=== PATIENT | female | born 1945 | race Asian ===

== ENCOUNTER 2017-09-25 02:02 | Observation (INO) | payer OTHER ==
[~2017-09-25] VITALS: Ht 160 cm; Wt 57.6 kg
[~2017-09-25 02:02] MED LIST: FERROUS SULFAT324 MG PO; MELOXICAM7.5 M1 PO; METFORMIN HCL500 M3 PO; MULTIVITAMINS1 EAC9 PO; PANTOPRAZOLE SO40 M1 PO; PRAVACHOL20 M2 PO
--- NOTE | 2017-09-25 10:39 | Operative Report ---
Operative/Inv Procedure Report Surgery Date: 09/25/17 Name of Procedure: Right total knee arthroplasty. Pre-Operative Diagnosis: Right knee primary osteoarthritis. Post-Operative Diagnosis: Same. Estimated Blood Loss: 50ml to 100ml Surgeon/Seafood And Service Meat Manager: Alessandro Boyer MD/RIO Walker Anesthesia: Spinal Monitors: EKG/blood pressure/oxygen saturation. IV Fluids: 1200 cc lactated Ringer's. Implants: Ronald Triathlon PS Knee Components 1. Size 3 posterior Stabilized Femoral Component. 2. Size 3 tibial Baseplate 3. Size 3 x 11 mm Tibial Bearing Insert. 4. Size 27 x 9 mm symmetric patella Component. Urine Output: 250 cc. Drains: None. Specimens: Excised portions of bone and cartilage and soft tissue sent to pathology for histopathological analysis and documentation. Microbiology: None. Tourniquet: 46 minutes at 300 mmHg. Complications: None known. Condition: Stable. Operative Indication: The patient is a 72-year-old female with a several year history of progressive right knee pain and gradually developing varus deformity secondary to primary osteoarthritis of the knee. She was initially treated conservatively by her PCP and then referred to me when initial conservative treatment by her PCP failed. I did continue conservative treatment with medications and modalities and therapy and activity modification along with oral and topical medication management. We did try various injection therapies to the knee. The patient's knee symptoms ultimately continued and progressed. We did discuss the risks and benefits and expected outcomes of continued attempts at nonoperative management which would no longer felt to be acceptable to the patient. We did discuss the same with respect to surgical intervention with right total knee arthroplasty. All of the patient's questions were answered at length. After discussion of her options and answering all questions the patient did wish to move forward with surgery and surgical consent was obtained. Operative/Procedure Note Note: DATE OF SERVICE: 09/25/2017 PREOPERATIVE DIAGNOSIS: Right knee primary osteoarthritis. POSTOPERATIVE DIAGNOSIS: Same PROCEDURE TITLE: Right total knee arthroplasty. SURGEON: Alessandro Boyer M.D. PROJECT MANAGER RETAIL: RIO Walker FINDINGS: 1. Tricompartmental primary osteoarthritis right knee. ANESTHESIA: Spinal plus sedation. MONITORS: EKG, BP, O2 saturation, BIS. IV FLUIDS: 1200 cc lactated Ringer's. IMPLANTS PLACED: Ronald Triathlon PS Knee Components 1. Size 3 posterior Stabilized Femoral Component. 2. Size 3 tibial Baseplate 3. Size 3 x 11 mm Tibial Bearing Insert. 4. Size 27 x 9 mm symmetric patella Component. URINE OUTPUT: 250 cc. EBL: 50-100 cc. DRAINS: None. SPECIMEN: Excised portions of bone and cartilage and soft tissue sent to pathology for histopathological analysis and documentation. TOURNIQUET: 46 minutes at 300 mmHg. COMPLICATIONS: None known. OPERATIVE INDICATIONS: The patient is a 72-year-old female with a several year history of progressive right knee pain and gradually developing varus deformity secondary to primary osteoarthritis of the knee. She was initially treated conservatively by her PCP and then referred to me when initial conservative treatment by her PCP failed. I did continue conservative treatment with medications and modalities and therapy and activity modification along with oral and topical medication management. We did try various injection therapies to the knee. The patient's knee symptoms ultimately continued and progressed. We did discuss the risks and benefits and expected outcomes of continued attempts at nonoperative management which would no longer felt to be acceptable to the patient. We did discuss the same with respect to surgical intervention with right total knee arthroplasty. All of the patient's questions were answered at length. After discussion of her options and answering all questions the patient did wish to move forward with surgery and surgical consent was obtained. PROCEDURE DESCRIPTION/FINDINGS: The patient was brought to the operating room and placed on the operating room table in the supine position. The patient was then placed into a sitting position and a spinal anesthetic was administered by the anesthesia staff. The patient was returned to the supine position and given sedation. A dose of IV antibiotics was given for infection prophylaxis. 1 g of tranexamic acid was given to help minimize acute blood loss during and immediately after surgery. A well-padded tourniquet was applied to the proximal portion of the right thigh. A Navarro catheter was placed in sterile fashion by the nursing staff. All bony prominences were well padded. The nonsterile portion of the Nelson leg daigle was secured to the OR table. The right foot and ankle were wrapped in a plastic barrier drape secured with tape. The right lower extremity was then prepped and draped in the usual sterile fashion. Bony landmarks and a planned midline anterior longitudinal skin incision were marked on the skin using a sterile marker. An Ioban drape was then applied over and about the knee. The sterile plate for the Nelson leg daigle was secured in position on the OR table. The right leg, ankle and foot were then padded and secured to the sterile stirrup for the Nelson leg daigle. The extremity was then exsanguinated with an Esmarch bandage and the pneumatic tourniquet was inflated to a pressure of 300 mm Hg. The skin incision was made with a #10 scalpel blade. Sharp dissection continued down through the skin and subcutaneous tissues down to the level of the extensor mechanism. Full-thickness skin with subcutaneous tissue flaps were raised in a medial and lateral direction sharply with a combination of scalpel and Metzenbaum scissors. Hemostasis was achieved using electrocautery. A medial parapatellar arthrotomy was performed and extended proximally into the quadriceps tendon and distally to the medial side of the tibial tubercle. The patella was everted and a synovectomy about the patella was performed sharply with a scalpel. Osteophytes about the articular margin of the patella were excised using rongeurs. The retropatellar fat pad was excised sharply with a scalpel. A synovectomy of the supracondylar region at the anterior distal femur as well as about the medial and lateral gutters of the knee was also performed sharply, achieving hemostasis with electrocautery. Inspection of the patellofemoral articular cartilage showed full-thickness chondral loss at the trochlear groove as well as significant cartilage wear with fissuring and fibrillation at the patella.. The patellar thickness measured 24 mm at the thickest portion of the patella using the patellar caliper. The sagittal saw was used to make a provisional transverse resection cut removing the patella facets and articular cartilage. The patella component sizing template was placed onto the cut surface of the patella. In this case we elected to go with a 27 mm diameter symmetric patellar component. This patellar component has a polyethylene thickness of 9 mm. We therefore resected some more patellar bone to equalize as best as possible the amount of bone resected to correlate with the thickness of the patella component. We therefore in this case resected patellar bone until we were left with a cut patella measuring 14 mm thick as measured with the patellar caliper. The patella drill guide was placed onto the cut surface of the patella and medialized slightly to help with patellofemoral tracking. The patellar component fixation holes were drilled through the drill guide with the appropriate drill. The metal protector for the cut surface of the patella was applied and the patella was subluxated laterally out of the way in to the lateral gutter. The knee was flexed and provisional excision of the medial and lateral menisci as well as the cruciate ligaments were performed sharply with a scalpel. Synovectomy of the intercondylar notch of the distal femur was performed sharply as well. Osteophytes about the intercondylar notch were taken down with rongeurs. The intramedullary drill was used to open the distal femur in a distal to proximal direction beginning roughly 1 cm anterior to the femoral attachment site of the posterior cruciate ligament. The intramedullary pedro was attached to the femoral alignment guide which was set at 6 of valgus and with the universal resection block also attached for a planned distal femoral resection of 10 millimeters. The intramedullary pedro was impacted through the hole in the distal femur and advanced until the attached femoral alignment guide was resting against the most prominent portion of the distal femoral condyles. The femoral alignment guide was then secured in position with pins. The distal resection guide was pinned to the anterior femur. The intramedullary pedro and femoral alignment guide were then removed leaving the distal resection guide in placed. The modular capture for the sagittal saw was attached and the distal femoral resection cuts were made with the sagittal saw making sure to protect the soft tissues. The distal femoral resection guide was removed and the distal femoral resection cut was checked and was felt to be satisfactory. The femoral sizer was set for 3 of external rotation and then it was placed in to position on the cut surface of the distal femur with the feet of the sizer slipped underneath the femoral condyles. Referencing the trans-epicondylar axis was not needed in this case to set the rotation of the sizer as there was no significant loss of the posterior femoral condyles. We determined the level of anterior bone resection and femoral sizing in this case to be best with a size 3 as checked with both the femoral stylus and the dusty wing checked through both the medial and lateral femoral sizing slots. Once we determined the appropriate level for anterior bone resection, and consequently the proper femoral sizing, the peg drill to make holes for placement of the four in one cutting block was drilled through the ``EPI holes in the femoral sizing jig. The femoral sizer was removed, and the four in one cutting block was secured to the distal femur with the fixation pegs placed in to the previously drilled holes made through the femoral sizing jig. Retractors were placed for soft tissue protection and the distal femoral resection cuts were made sequentially beginning with the anterior femoral cut, followed by the posterior condyle cuts, followed by the anterior chamfer cut, and finally the posterior chamfer cut. Bone fragments following the cuts were removed. A size 3 PS box cutting guide was placed on to the cut distal femur and positioned optimally in a medial-lateral direction and then pinned in position. The box chisel was inserted in to the slot for the box cutting guide and then impacted with a mallet until it was fully seated. A sagittal saw was then used to make the bone cuts for the medial and lateral edges of the bone to be resected for the box cut. The box cut bone was then removed after freeing it from soft tissue attachments. The box cutting guide was removed and attention was turned to preparation of the proximal tibia. The pickle fork retractor was placed behind the upper central tibial plateau and used to lever the proximal tibia anteriorly. Final resection of the remnants of the medial and lateral menisci and the tibial intercondylar insertion site of the ACL was performed sharply with a scalpel. The intramedullary drill was used to open a hole in the intercondylar region in line with the tibial medullary canal. The tibial intramedullary alignment pedro pre-assembled with the tibial resection guide set for a 3 degree posterior slope was placed into the tibial intramedullary canal and advanced until the tibial stylus for a 4 mm bone resection was resting at the lowest level of the medial compartment. The tibial resection guide was then pinned in position. The modular capture for the sagittal saw was attached and then the sagittal saw was used to make the proximal tibia resection cut, making sure to protect the soft tissues with retractors. The cut proximal tibia bone was removed after freeing it up from soft tissue attachments. Osteophytes along the upper margin of the tibia at the level of the bone resection were removed with rongeurs. The tibial tray sizing templates were placed on to the cut surface of the proximal tibia and used to determine the best size for the tibial tray component. In this case a size 3 sizing template fit very nicely. We next removed excess osteophytes from the posterior femoral condyles with an osteotome and removed the bone fragments with a curette. We next impacted a size 3 trial femoral component in to position and visually confirmed it to be well seated and in good position. We next placed a size 3 trial tibial template with a provisional 9 millimeters thickness trial tibial spacer on to the cut surface of the knee and reduced the knee. With the trial tibial and femoral components in place we then reduced the knee to check motion and stability and allow the tibial trial component to rotate naturally with reduction to its' proper orientation. Knee motion was checked and we did confirm the ability to achieve full knee extension. Knee flexion was checked and was found to be about 130 degrees. Varus and valgus stress testing was performed with the knee in extension and was felt to be slightly lax on valgus stress testing of the knee. We therefore swapped out the provisional 9 mm thickness trial tibial spacer for an 11 mm thickness trial tibial spacer. Knee motion with the 11 mm thickness spacer was checked and once again showed full extension and excellent flexion. The knee was now much more stable on varus and valgus stress testing in full extension and in mid flexion. The upper anterior tibial cortical bone was scored with an electrocautery in line with the notches on the anterior aspect of the tibial trial to set proper rotation of the true tibial components when placed. A size 27 mm trial symmetric patellar component was placed and patellofemoral tracking was assessed. The tibial trial component was then pinned in position after removing the trial spacer. An appropriate size keel punch guide was placed in to the tibial trial component and then the keel punch was impacted using a mallet. The keel punch and guide were removed as was the tibial trial template. The trial femoral and patellar components were also removed. Attention was now directed towards placement of the true components. All cut bony surfaces as well as the soft tissues about the bone were copiously irrigated with a pulsatile lavage system. The irrigated cut surfaces of the bone were dried with lap pads. While this was being performed, the proper sized true femoral, tibial, and patellar components for implantation were opened and cement was mixed per protocol. Once the cement was set to the proper consistency, attention was directed towards cementing the true components in position. Beginning with the tibial component we applied some cement to the cut upper surface of the proximal tibia and also injected some cement down in to the intramedullary canal through the keel punch slot made earlier. The cement on the upper tibia was manually pressed and massaged in to the bone for better interdigitation. A layer of cement was also applied to the back side of a size 3 tibial tray component. The tibial tray component was then impacted in to position on to the cut surface of the proximal tibia making sure that the orientation of the keel of the component matched the keel slot cut in to the proximal tibia. Excess cement was removed from around the margins of the proximal tibia with curettes, and pickups and scalpels. The tibial tray was further impacted and further extruded cement from the margins of the base plate was again removed in similar fashion. We next turned our attention to the distal femur where cement was applied with a cement gun and then interdigitated manually in similar fashion to the bone of the anterior and distal femur, leaving the posterior femoral condyle cuts free from cement for the moment. A thin layer of cement was applied to the posterior femoral condyles of a size 3 femoral component and then the femoral component was impacted in to position. In similar fashion as before, excess cement was removed, the femoral component was impacted further and additional excess cement was once again removed. We next inserted a 11 mm thick size 3 tibial bearing component and impacted it until it was locked within the tibial tray component. We checked fixation of the bearing component within the tibial tray and were satisfied. After making sure that there was no bone or cement fragments or any other obstruction to reduction, we reduced the tibial component to the femoral component and maintained the knee fully extended while the fixation cement set up. We next turned our attention to placement of the patellar component. Once again cement was applied and then manually interdigitated in to the fibers of the cut surface of the patella as well as in to the fixation holes for the patellar component. A thin layer of cement was applied to the back surface of a size 27 mm symmetric patellar component and then the patellar component was placed on to the cut surface of the patella with the pegs for the patellar component properly positioned in to the peg holes in the bone. A patellar compression clamp was placed to temporarily secure the patellar component in position. Once again all excess cement was removed and the cement was allowed to set up. The knee was put through final range of motion and stability testing, all of which was felt to be acceptable. Patellofemoral tracking was checked again and felt to be satisfactory. With the true components now implanted our attention was directed towards closure. The knee joint and all prosthetic components as well as the soft tissues were irrigated with a pulsatile lavage. Another gram of tranexamic acid was infused by the anesthesia staff prior to dropping the tourniquet. The tourniquet was deflated after tourniquet time of 46 minutes. Hemostasis was achieved with electrocautery and manual pressure. The arthrotomy was repaired using size #1 Vicryl sutures placed in interrupted [id number] fashion. The soft tissues were irrigated once again with the pulsatile lavage. The subcutaneous tissues were closed in layers using #1 Vicryl suture placed in interrupted buried fashion in the deeper subcutaneous tissues. The more superficial subcutaneous tissues were repaired using 2-0 Vicryl placed in interrupted buried fashion as well. The skin margins were then approximated using a skin stapler. The Hemovac drain was connected to the tubing. The wounds were all washed and dried. Adaptic dressing was placed over the Steri- Strips line and about the Hemovac drain tubing exit site in the skin. Gauze dressings followed by abdominal pads were applied over the wound and the Hemovac drain. Webril cotton padding was applied about the knee over the dressings. The extremity was then wrapped with Lenny bandages from the toes distally to the upper thigh proximally to hold the dressings in place and to also provide some compression to the knee joint and to the extremity in general postoperatively to minimize swelling of the knee and hopefully minimize venous pooling in the extremity which might result in a DVT. The patient awakened from sedation and then transferred to a hospital bed and brought to the PACU having tolerated the procedure well. Findings: As per preop. Discharge Disposition: PACU
[2017-09-25 13:30] VITALS: BP 122/70
--- NOTE | 2017-09-25 14:37 | Admission Core Measures ---
Acute Coronary Syndrome (CM) ACS Core Measures Acute Coronary Syndrome Diagnosis No Congestive Heart Failure (NEW) CHF Core Measures Congestive Heart Failure Diagnosis No Cerebrovascular Accident CVA Core Measures CVA/TIA Diagnosis No Venous Thromboembolism VTE Core Rubén (View Protocol) VTE Risk Factors Surgery No Mechanical VTE Prophylaxis d/t N/A MechProphylax Ordered No VTE Pharm Prophylaxis d/t NA PharmProphylax ordered Problem List As ranked by this Provider includes Assessment & Plan 1. Primary osteoarthritis of right knee HOME MEDS Home Med List Ferrous Sulfate 324 MG (65 MG IRON) TABLET.DR 1 TAB PO DAILY SUPPLEMENT ( Reported) Meloxicam 7.5 MG TABLET 1 TAB PO DAILY PAIN (Reported) Metformin HCl 500 MG TABLET 1 TAB PO BID DM (Reported) Multiple Vitamin (Multivitamins) 1 EACH TABLET 1 TAB PO DAILY SUPPLEMENT ( Reported) Pantoprazole Sodium 40 MG TABLET.DR 1 TAB PO PRN GERD (Reported) Pravastatin Sodium (Pravachol) 20 MG TABLET 0.5 TAB PO DAILY CHOLESTEROL ( Reported)
--- NOTE | 2017-09-25 14:37 | PN- Orthopedic ---
Subjective Subjective: POSTOP CHECK Patient reports pain well controlled. Denies numbness, tingling, chest pain, sob. Has not eaten or ambulated oob with PT yet. Sanford in place. Offers no complaints. Objective Vital Signs and I&Os Vital Signs Date Time Temp Pulse Resp B/P B/P Pulse O2 O2 Flow FiO2 Mean Ox Delivery Rate 09/25 1330 97.2 74 20 122/70 96 Room Air Physical Exam: Gen - resting comfortably in bed in nad Cardiac - S1S2 noted, RRR Lungs - anterior bs CTA Abd - soft, nontender - sanford in plac, clear urine Ext - RLE dressing c/d/i, moves all extremities, motor an sensory intact, compartment soft, alps in place, no edema or calf pain Current Medications: Current Medications Sig/Clifton Start time Last Medication Dose Route Stop Time Status Admin Acetaminophen 0 .STK-MED ONE 09/25 0804 DC PO Acetaminophen 650 MG ONCE 09/25 0000 DC PO 09/25 2359 Alcohol 0 .STK-MED ONE 09/25 1104 DC TOP 09/25 1105 Apixaban 2.5 MG BID 09/26 0900 AC PO Bacitracin 0 .STK-MED ONE 09/25 1104 DC IM 09/25 1105 Bupivacaine Liposome 266 MG .STK-MED ONE 09/25 0850 DC INF 09/25 0851 Celecoxib 400 MG DAILY 09/26 0900 AC PO Celecoxib 400 MG ONCE 09/25 0000 DC PO 09/25 2359 Dexamethasone 0 .STK-MED ONE 09/25 0803 DC .ROUTE Dexamethasone 10 MG ONCE 09/25 0000 DC IV 09/25 2359 Diphenhydramine HCl 25 MG ONCE ONE 09/25 1200 DC IV 09/25 1201 Docusate Sodium 100 MG BID PRN 09/25 1030 AC PO Fentanyl Citrate 0 .STK-MED ONE 09/25 0813 DC .ROUTE Gabapentin 0 .STK-MED ONE 09/25 0804 DC PO Gabapentin 300 MG ONCE 09/25 0000 DC PO 09/25 2359 Ketorolac 30 MG ONCE ONE 09/25 1200 DC Tromethamine IV 09/25 1201 Metformin HCl 500 MG BID 09/25 2100 AC PO Metoclopramide HCl 10 MG Q6H PRN 09/25 1200 AC IV Midazolam HCl 0 .STK-MED ONE 09/25 08 DC .ROUTE Morphine Sulfate 2 MG Q3P PRN 09/25 1345 AC IV Morphine Sulfate 0 .STK-MED ONE 09/25 0814 DC .ROUTE Omeprazole 40 MG DAILY AC 09/26 0700 AC PO Ondansetron HCl 4 MG Q6P PRN 09/25 1345 AC IV Oxycodone HCl 0 .STK-MED ONE 09/25 0804 DC PO Oxycodone HCl 10 MG ONCE 09/25 0000 DC PO 09/25 2359 Oxycodone/ 1 TAB Q4P PRN 09/25 1345 AC Acetaminophen PO Oxycodone/ 2 TAB Q4P PRN 09/25 1345 AC Acetaminophen PO Polyethylene Glycol 17 GM DAILY PRN 09/25 1030 AC PO Pravastatin Sodium 10 MG DAILY 09/26 0900 AC PO Scopolamine HBr 0 .STK-MED ONE 09/25 0803 DC TOP Scopolamine HBr 1 PAT ONCE 09/25 0000 DC TOP 09/25 2359 Senna/Docusate Sodium 2 TAB AT BEDTIME NEED.. 09/25 1345 AC PO Sodium Chloride 1,000 ML .[id number] 09/25 1345 AC IV Sodium Chloride 10 ML .STK-MED ONE 09/25 1104 DC IV 09/25 1105 Tranexamic Acid 0 .STK-MED ONE 09/25 0814 DC IV Vancomycin HCl 1,000 MG ONCE ONE 09/25 1900 AC Sodium Chloride 250 ML IV 09/25 1959 Vancomycin HCl 1,000 MG ONCE 09/25 0000 DC Sodium Chloride 250 ML IV 09/25 2359 Assessment/Plan Assessment/Plan 72 F s/p R TKR, recovering well PT eval, WBAT Ada diet, IVF Postop abx - vanco x1 Pain regimen prn Pertinent home meds ordered DVT ppx - alp, eliquis in am Encourage IS Sanford out in AM Dc planning - anticipate home PT in 2-3 days Core Measures Venous Thromboembolism VTE Risk Factors Surgery No Mechanical VTE Prophylaxis d/t N/A MechProphylax Ordered No VTE Pharm Prophylaxis d/t NA PharmProphylax ordered
--- NOTE | 2017-09-25 15:16 | Surgical Discharge Summary ---
Visit Information Visit Dates Admission Date: 09/25/17 Discharge Date: 09/28/2017 History of Present Illness Chief Complaint: Right knee pain Medical History Isolation History: Standard Surgical History Pertinent Surgical History: R TKR Psychosocial History What is Your Primary Language? Charline Review of Systems: Refer to H&P Hospital Course Course Attending Physician: Alessandro Boyer MD Primary Care Physician: Jeremy Chavez MD [facility] Hospital Course: Patient under an elective right total knee replacement on 09/25/17. Patient tolerated the procedure well. Postoperatively she was tolerating a regular diet , voiding spontaneously, pain was well managed with oral medication, and she was ambulating with physical therapy using a rolling walker. Patient was cleared for discharge. Allergies: Coded Allergies: No Known Allergies (09/14/17) Significant Procedures: R TKR on 09/25/17 Disposition Summary Disposition Principal Diagnosis: Right knee primary osteoarthritis. Additional Diagnosis: ROSANGELA s/p R TKR Discharge Disposition: home health services Discharge Instructions General Discharge Information Code Status: Full Code Patient's Diet: Diabetic diet Patient's Activity: WBAT with RW Follow-Up Instructions/Appts: [address] Boyer Medications at Discharge Discharge Medications: Stop taking the following medications: Meloxicam (Meloxicam) 7.5 MG TABLET ORAL DAILY Continue taking these medications: Metformin HCl (Metformin HCl) 500 MG TABLET 1 Tablet ORAL TWICE DAILY Comments: Last Taken:09/27/17 Time:0900 AM Multiple Vitamin (Multivitamins) 1 EACH TABLET 1 Tablet ORAL DAILY Comments: DID NOT TAKE WHILE IN THE HOSPITAL Pantoprazole Sodium (Pantoprazole Sodium) 40 MG TABLET. 1 Tablet ORAL NEEDED Comments: Last Taken:09/27/17 Time:0600 AM Pravastatin Sodium (Pravachol) 20 MG TABLET 0.5 Tablet ORAL DAILY Comments: Last Taken:09/27/17 Time:0900 AM Ferrous Sulfate (Ferrous Sulfate) 324 MG (65 MG IRON) TABLET. 1 Tablet ORAL DAILY Comments: Last Taken:09/27/17 Time:0900 AM Start taking the following new medications: Apixaban (Eliquis) 2.5 MG TABLET 2.5 Milligram ORAL TWICE DAILY Qty = 60 No Refills Comments: Last Taken:09/27/17 Time:0900 AM Docusate Sodium (Docusate Sodium) 100 MG CAPSULE 100 Milligram ORAL TWICE DAILY as needed for CONSTIPATION Qty = 20 No Refills Comments: DID NOT TAKE IN THE HOSPITAL Oxycodone HCl/Acetaminophen (Percocet 5-325 MG Tablet) 5 MG-325 MG TABLET 1-2 Tablet ORAL EVERY 4 HOURS NEEDED as needed for PAIN Qty = 36 No Refills Comments: Last Taken:09/27/17 Time:0321 AM ONE TAB
--- NOTE | 2017-09-25 15:21 | Patient Discharge Instructions ---
Discharge Instructions General Discharge Information You were seen/treated for: Right knee osteoarthritis You had these procedures: Right total knee arthroplasty Watch for these problems: Fever over 100.4 Drainage from wound Redness and swelling around wound Unable to bear weight on right lower extremity Chest pain or shortness of breath Do not soak the wound: Yes No bath, but you may shower: Yes Other wound care: Daily dry dressing change Special Instructions: Okay to shower. Keep wound clean and dry Diet Continue normal diet: Yes Activity Full Activity/No Limits: No Activity Self Limited: Yes Activity Limited to: Weight bear as tolerated Other activity limits: Use rolling walker as needed Acute Coronary Syndrome Inclusion Criteria At DC or during hospital stay patient has or had the following: ACS DIAGNOSIS No Discharge Core Measures Meds if any: Prescribed or Continued at Discharge Meds if any: NOT Prescribed or Continued at Discharge Congestive Heart Failure Inclusion Criteria At DC or during hospital stay patient has or had the following: CHF DIAGNOSIS No Discharge Core Measures Meds if any: Prescribed or Continued at Discharge Meds if any: NOT Prescribed or Continued at Discharge Cerebrovascular accident Inclusion Criteria At DC or during hospital stay patient has or had the following: CVA/TIA Diagnosis No Discharge Core Measures Meds if any: Prescribed or Continued at Discharge Meds if any: NOT Prescribed or Continued at Discharge Venous thromboembolism Inclusion Criteria VTE Diagnosis No VTE Type NONE VTE Confirmed by (Test) NONE Discharge Core Measures - Per Current guidelines, there needs to be overlap - treatment for the first 5 days of Warfarin therapy. - If discharged on Warfarin prior to 5 days of - overlap therapy, the patient will need to be - assessed for post discharge needs including - *Post discharge parental anticoagulation - *Warfarin and/or parental anticoagulation education - *Follow up date to check INR post discharge At least 5 days overlap therapy as Inpatient No Meds if any: Prescribed or Continued at Discharge Note: Overlap Therapy is Warfarin and Anticoagulant Meds if any: NOT Prescribed or Continued at Discharge
[2017-09-25 16:54] VITALS: BP 104/76
[2017-09-25 19:25] VITALS: BP 126/66
[2017-09-25 21:30] VITALS: BP 112/78
[2017-09-25 22:45] VITALS: BP 100/62
[2017-09-26 04:20] VITALS: BP 122/68
--- NOTE | 2017-09-26 07:21 | PN- Orthopedic ---
See Addendum Subjective Subjective: Patient reports postop pain. She denies ambulating with PT. Navarro removed this morning. Tolerating an ada diet, without nausea or vomiting. Denies chest pain, sob. Offers no other complaints. Objective Vital Signs and I&Os Vital Signs Date Time Temp Pulse Resp B/P B/P Pulse O2 O2 Flow FiO2 Mean Ox Delivery Rate 09/26 0420 98.7 85 20 122/68 96 09/25 2245 98.0 77 16 100/62 94 09/25 2130 98.0 89 16 112/78 94 09/25 1925 97.8 100 20 126/66 94 09/25 1654 97.6 86 16 104/76 94 09/25 1330 97.2 74 20 122/70 96 Room Air Intake & Output 09/26 0800 09/26 0000 09/25 1600 09/25 0809/25 0000 09/24 1600 Intake Total 1200 760 700 Output Total 650 600 300 Balance 550 160 400 Intake, IV 600 400 300 Intake, Oral 600 360 400 Output, Urine 650 600 300 Patient 127 lb Weight Weight Reported by Patient Measurement Method Physical Exam: Gen - resting comfortably in bed in nad Cardiac - S1S2 noted, RRR Lungs - anterior bs CTA Abd - soft, nontender Ext - RLE dressing c/d/i, moves all extremities, motor an sensory intact, compartment soft, alps in place, no edema or calf pain Current Medications: Current Medications Sig/[place] Start time Last Medication Dose Route Stop Time Status Admin Acetaminophen 0 .STK-MED ONE 09/25 0804 DC PO Acetaminophen 650 MG ONCE 09/25 0000 DC PO 09/25 2359 Alcohol 0 .STK-MED ONE 09/25 1104 DC TOP 09/25 1105 Apixaban 2.5 MG BID 09/26 899 AC PO Bacitracin 0 .STK-MED ONE 09/25 1104 DC IM 09/25 1105 Bupivacaine Liposome 266 MG .STK-MED ONE 09/25 0850 DC INF 09/25 0851 Celecoxib 400 MG DAILY 09/26 09 AC PO Celecoxib 400 MG ONCE 09/25 0000 DC PO 09/25 2359 Dexamethasone 0 .STK-MED ONE 09/25 0803 DC .ROUTE Dexamethasone 10 MG ONCE 09/25 0000 DC IV 09/25 2359 Diphenhydramine HCl 25 MG ONCE ONE 09/25 1200 DC IV 09/25 1201 Docusate Sodium 100 MG BID PRN 09/25 1030 AC PO Fentanyl Citrate 0 .STK-MED ONE 09/25 0813 DC .ROUTE Gabapentin 0 .STK-MED ONE 09/25 0804 DC PO Gabapentin 300 MG ONCE 09/25 0000 DC PO 09/25 2359 Ketorolac 30 MG ONCE ONE 09/25 1200 DC Tromethamine IV 09/25 1201 Metformin HCl 500 MG BID 09/25 2100 AC 09/25 PO 2105 Metoclopramide HCl 10 MG Q6H PRN 09/25 1200 AC IV Midazolam HCl 0 .STK-MED ONE 09/25 0813 DC .ROUTE Morphine Sulfate 2 MG Q3P PRN 09/25 1345 AC IV Morphine Sulfate 0 .STK-MED ONE 09/25 0814 DC .ROUTE Omeprazole 40 MG DAILY AC 09/26 0700 AC 09/26 PO 0612 Ondansetron HCl 4 MG Q6P PRN 09/25 1345 AC IV Oxycodone HCl 0 .STK-MED ONE 09/25 0804 DC PO Oxycodone HCl 10 MG ONCE 09/25 0000 DC PO 09/25 2359 Oxycodone/ 1 TAB Q4P PRN 09/25 1345 AC Acetaminophen PO Oxycodone/ 2 TAB Q4P PRN 09/25 1345 AC 09/26 Acetaminophen PO 0612 Polyethylene Glycol 17 GM DAILY PRN 09/25 1030 AC PO Pravastatin Sodium 10 MG DAILY 09/26 0900 AC PO Scopolamine HBr 0 .STK-MED ONE 09/25 0803 DC TOP Scopolamine HBr 1 PAT ONCE 09/25 0000 DC TOP 09/25 2359 Senna/Docusate Sodium 2 TAB AT BEDTIME NEED.. 09/25 1345 AC PO Sodium Chloride 1,000 ML .[id number] 09/25 1345 AC 09/26 IV 0051 Sodium Chloride 10 ML .STK-MED ONE 09/25 1104 DC IV 09/25 1105 Tranexamic Acid 0 .STK-MED ONE 09/25 0814 DC IV Vancomycin HCl 1,000 MG ONCE ONE 09/25 1900 DC 09/25 Sodium Chloride 250 ML IV 09/25 1959 2105 Vancomycin HCl 1,000 MG ONCE 09/25 0000 DC Sodium Chloride 250 ML IV 09/25 2359 Assessment/Plan Assessment/Plan 72 F POD 1 s/p R TKR, recovering well with expected postop pain, awaiting PT eval PT eval, WBAT Cont ada diet D/c IVF Home meds on board DVT ppx - alp, eliquis bid F/u labs Encourage IS Dc planning - anticipate home PT in 1-2 days D/w Dr. Boyer Core Measures Venous Thromboembolism VTE Risk Factors Surgery No Mechanical VTE Prophylaxis d/t N/A MechProphylax Ordered No VTE Pharm Prophylaxis d/t NA PharmProphylax ordered
[2017-09-26 07:50] VITALS: BP 98/58
[2017-09-26 08:53] LABS: ABSOLUTE BASOPHIL COUNT 0 /CUMM (0.0-0.2); ABSOLUTE EOSINOPHIL COUNT 0 /CUMM (0.0-0.7); ABSOLUTE LYMPH COUNT 3.5 /CUMM (1.2-3.4); ABSOLUTE MONOCYTE COUNT 0.9 /CUMM (0.10-0.60); BASOPHIL % 0.2 % (0.0-2.0); EOSINOPHIL % 0.2 % (0-5); GRANULOCYTE % 61.3 % (42.2-75.2); HEMATOCRIT 27.3 % (37-47); MEAN CORPUSCULAR HGB 28.2 PG (27.0-31.0); MEAN CORPUSCULAR HGB CONC 33.2 G/DL (33.0-37.0); MEAN CORPUSCULAR VOLUME 84.9 FL (81.0-99.0); MEAN PLATELET VOLUME 9.2 FL (7.4-10.4); PLATELET COUNT 197 /CUMM (130-400); RBC DISTRIBUTION WIDTH 15.3 % (11.5-14.5); RED BLOOD CELL CT 3.21 /CUMM (4.20-5.40); WHITE BLOOD CELL COUNT 11.4 /CUMM (4.8-10.8)
[2017-09-26 12:38] VITALS: BP 120/60
[2017-09-26 16:00] VITALS: BP 140/70
[2017-09-26 22:08] VITALS: BP 120/62
[2017-09-27 06:10] VITALS: BP 140/78
--- NOTE | 2017-09-27 07:55 | PN- Orthopedic ---
Core Measures Venous Thromboembolism VTE Risk Factors Surgery No Mechanical VTE Prophylaxis d/t N/A MechProphylax Ordered No VTE Pharm Prophylaxis d/t NA PharmProphylax ordered
--- NOTE | 2017-09-27 09:25 | PN- Orthopedic ---
Subjective Subjective: pt in bed, ambulated with PT this morning and was cleared to DC to home. After ambulation pt has pain 6-7/10, resting in bed now. Tolerating PO, voiding. Denies paresthesias Denies fever, Cp/SOB Objective Vital Signs and I&Os Vital Signs Date Time Temp Pulse Resp B/P B/P Pulse O2 O2 Flow FiO2 Mean Ox Delivery Rate 09/27 0610 98.6 98 18 140/78 94 Room Air 09/26 2208 99.3 92 18 120/62 98 Room Air 09/26 1600 98.4 93 18 140/70 96 Room Air 09/26 1238 97.9 83 18 120/60 96 Intake & Output 09/27 1600 09/27 0800 09/27 0000 09/26 1600 09/26 0800 09/26 0000 Intake Total 480 399 179 4427 760 Output Total 650 800 400 650 600 Balance -170 -400 400 550 160 Intake, IV 600 400 Intake, Oral 480 400 800 600 360 Number 1 Bowel Movements Output, Urine 650 800 400 650 600 Patient 127 lb Weight Physical Exam: General- NAD Resperations- clear bialaterlly Cardiac-regular rate and rhythm Abdomensoft nontender with positive bowel sounds Extremitiesdressing is clean and dry, thigh is soft with no erythema minimal tenderness around incision. Calves are soft bilaterally and non-tenderness. Distal sensory and motor function is intact. 2+ dorsalis pedis pulse bilaterally Dressing changed, maricel in palce, no signs of infection, no drainage Assessment/Plan Assessment/Plan 72yo F with hx dm, hld, and gerd now SP Right TKA POD2 here for observation. Stable pain management PT- WBAT with rolling walker DVT PPX- eliquis FU AM labs Regular diet Regular home medications DC planning- possibly home today, will talk to daughter later when she gets here as pt doesnt feel totally comfortable going home yet even though she is medically stable and cleared by PT FU with Dr Boyer in 2 weeks Core Measures Venous Thromboembolism VTE Risk Factors Surgery No Mechanical VTE Prophylaxis d/t N/A MechProphylax Ordered No VTE Pharm Prophylaxis d/t NA PharmProphylax ordered
[2017-09-27] MEDS ORDERED: DOCUSATE SODIU100 M3 PO (10:53)
[2017-09-27] MEDS ORDERED: PERCOCET 5-3251 EACH PO (10:53)
[2017-09-27] MEDS ORDERED: ELIQUIS2.5 M1 PO (10:53)
--- NOTE | 2017-09-27 10:58 | RADIOLOGY REPORT ---
EXAMINATION: XR KNEE, RIGHT CLINICAL INFORMATION: Status post right TKA. COMPARISON: None TECHNIQUE: AP and lateral views of the right knee. FINDINGS: There are postoperative findings related to total right knee arthroplasty which is in expected position. There is no periprosthetic fracture. There are skin maricel and soft tissue swelling. A joint effusion is noted. IMPRESSION: Expected postoperative findings related to right total knee arthroplasty.
== END 2017-09-27 14:47 | disposition home health service (06) ==
LOC: 2NA 02:02 → SDA 02:02 → 2NA 02:02 → ENRESERV 11:46 → ENTRNSPT 12:58 → EDTRNSPT 13:01 → EDTRNSPTSTS 13:01 → 2NA 13:18 → CMPTRNSPT 13:36 → 2NA 09-26 13:03 → ENPENDDIS 09-27 10:59 → ENTRNSPT 09-27 14:30 → 2NA 09-27 14:47 → CMPTRNSPT 09-27 15:12
PROVIDERS: Physician Assistant Surgical
DX: M17.11 Unilateral primary osteoarthritis, right knee (principal); E11.9 Type 2 diabetes mellitus without complications; E78.5 Hyperlipidemia, unspecified; I10 Essential (primary) hypertension; K21.9 Gastro-esophageal reflux disease without esophagitis; Z79.899 Other long term (current) drug therapy
CPT/HCPCS: 2NAP; 6030; 36592; 73560-RT; 82436; 87086; 88305; 96374; 97116-GO; 97116-GP; 97161-GP; 97530-GO; C1713; C9290; G0378; J1100; J1200; J1885; J2405; J2765; J3370; J7040